=== PATIENT | male | born 2005 | race Caucasian/White ===

== ENCOUNTER 2025-01-11 15:41 | Outpatient (CLI) | payer OTHER, SELFPAY | END 2025-01-11 15:42 | disposition home or self-care (01) | PROVIDERS: Visit Provider Physician Assistant | DX: R11.2 Nausea with vomiting, unspecified (principal) | CPT/HCPCS: 80076; 84443 ==

== ENCOUNTER 2025-05-24 08:07 | Outpatient (CLI) | payer OTHER, SELFPAY ==
--- NOTE | 2025-05-24 09:36 | P.ANES_ITS ---
Anesthesia Charges Start Date/Time Anesthesia Start Date: 05/24/25 Anesthesia Start Time: 09:18 Stop Date/Time Anesthesia Stop Date: 05/24/25 Anesthesia Stop Time: 09:35 Coding CPT Codes CPT Codes: ANES UPR GI NDSC PX NOS - 03010 ([id number]) P1 - NORMAL HEALTHY PATIENT, QK - OFFICE WORKFORCE PLANNER 2-4 CNCRNT ANES PROC, QX - SEED CORE OPERATOR SVIgnacio W/ MED DIRECTION
--- NOTE | 2025-05-24 09:36 | W.ANESCHARGE ---
Anesthesia Charges Start Date/Time Anesthesia Start Date: 05/24/25 Anesthesia Start Time: 09:18 Stop Date/Time Anesthesia Stop Date: 05/24/25 Anesthesia Stop Time: 09:35 Coding CPT Codes CPT Codes: ANES UPR GI NDSC PX NOS - 95375 ([id number]) P1 - NORMAL HEALTHY PATIENT, QK - CONSERVATION AGENT 2-4 CNCRNT ANES PROC, QX - EQUALIZER OPERATOR SVIgnacio W/ MED DIRECTION
--- NOTE | 2025-05-24 10:45 | P.ANES_ITS ---
Anesthesia Charges Start Date/Time Anesthesia Start Date: 05/24/25 Anesthesia Start Time: 09:18 Stop Date/Time Anesthesia Stop Date: 05/24/25 Anesthesia Stop Time: 09:35 Coding CPT Codes CPT Codes: ANES UPR GI NDSC PX NOS - 96080 ([id number]) P1 - NORMAL HEALTHY PATIENT, QX - SHAKE LOADER KEYONA W/ MED DIRECTION, QK - BUTCHER APPRENTICE 2-4 CNCRNT ANES PROC
--- NOTE | 2025-05-24 10:45 | W.ANESCHARGE ---
Anesthesia Charges Start Date/Time Anesthesia Start Date: 05/24/25 Anesthesia Start Time: 09:18 Stop Date/Time Anesthesia Stop Date: 05/24/25 Anesthesia Stop Time: 09:35 Coding CPT Codes CPT Codes: ANES UPR GI NDSC PX NOS - 30646 ([id number]) P1 - NORMAL HEALTHY PATIENT, QX - HEAD CLEANING PORTER KEYONA W/ MED DIRECTION, QK - MUFFLER MECHANIC 2-4 CNCRNT ANES PROC
== END 2025-05-24 08:08 | disposition home or self-care (01) ==
PROVIDERS: Visit Provider Surgery
DX: K21.9 Gastro-esophageal reflux disease without esophagitis (principal)
CPT/HCPCS: 00731; 43239; J2704; J3490